=== PATIENT | female | born 1980 | race Caucasian/White ===

== ENCOUNTER → 2016-03-14 | Outpatient (CLI) | payer OTHER ==
[~2016-03-14] MED LIST: /MOM400 PO; ACET50TA PO; ANUS2.5C2 PR; DOCU10ELUD PO; IBUP100SUS PO
[2016-03-14 13:20] LABS: MEAN CORPUSCULAR HEMOGLOBIN 30.8 pg (27.0-33.0); MEAN CORPUSCULAR VOLUME 87.9 fl (80.0-96.0); RED CELL DISTRIBUTION WIDTH 12.9 % (11.5-14.5); WHITE BLOOD COUNT 8.7 K/mm3 (4.0-10.0)
== END ==
LOC: M SMT 08:53
PROVIDERS: ATTEND Advanced Practice Midwife
DX: Z34.82 Encounter for supervision of other normal pregnancy, second trimester (principal)

== ENCOUNTER 2016-04-17 15:24 | Emergency (ER) | payer OTHER ==
[2016-04-17] MEDS ORDERED: ONDANSETRON 4MG/2ML VIAL (J2405) As Ordered ONE (16:00)
[2016-04-17 16:14] LABS: MEAN CORPUSCULAR HEMOGLOBIN 30.2 pg (27.0-33.0); MEAN CORPUSCULAR HGB CONC 34.3 g/dl (32.0-36.5); MEAN CORPUSCULAR VOLUME 88.2 fl (80.0-96.0); RED CELL DISTRIBUTION WIDTH 13.3 % (11.5-14.5); WHITE BLOOD COUNT 13.2 K/mm3 (4.0-10.0)
[2016-04-17 16:23] LABS: ANION GAP 9 MEQ/L (8-16); BLOOD UREA NITROGEN 8 MG/DL (7-18); CALCIUM LEVEL 8.3 MG/DL (8.5-10.1); CARBON DIOXIDE LEVEL 25 MEQ/L (21-32); CHLORIDE LEVEL 105 MEQ/L (98-107); CREATININE FOR GFR 0.48 MG/DL (0.55-1.02); GLOMERULAR FILTRATION RATE > 60.0 (>60); GLUCOSE, FASTING 97 MG/DL (70-105); POTASSIUM SERUM 3.8 MEQ/L (3.5-5.1); SODIUM LEVEL 139 MEQ/L (136-145)
--- NOTE | 2016-04-17 19:48 | EDDOCDS ---
Nurse's Notes [facility] Name: Zahraa Babb Age: 35 yrs Sex: Female : 1980 Arrival Date: 04/17/2016 Time: 15:24 Bed 18 Private MD: Jaida Norwood PA-C. Diagnosis: Vomiting; related conditions, unspecified, third trimester Presentation: 04/17 15:29 Presenting complaint: Patient states: Patient reports she has been vomiting since 9 jmb a.m. today. Patient reports inability to keep food and fluids down. Patient report nausea and light headed. Adult Sepsis Screening: The patient does not have new or worsening altered mentation. Patient's respiratory rate is less than 22. Systolic blood pressure is greater than 100. Patient has a qSOFA score of 0- Negative Sepsis Screen. Suicide/Homicide risk assessment- the patient denies having any suicidal and/or homicidal ideations and does not present with any other emotional, behavioral or mental health complaints. Status: Patient is not a bookkeeping service sales agent or dependent. Transition of care: patient was not received from another setting of care. 15:29 Acuity: NOEL Level 3 [facility] 15:29 Method Of Arrival: Walkin/Carried/Asstd [facility] Triage Assessment: 15:31 General: Appears in no apparent distress, Behavior is appropriate for age, cooperative. [facility] Pain: Location: abdomen Pain currently is 7 out of 10 on a pain scale. HIV screening NA for this visit Offered previously. Neurological: Level of Consciousness is awake, alert, obeys commands, Oriented to person, place, time, Speech is normal, Facial symmetry appears normal, Facial symmetry: tongue is midline. Respiratory: Airway is patent Respiratory effort is even, unlabored, Respiratory pattern is regular, symmetrical. GI: Abdomen is gravid. Derm: Skin is pink, warm & dry. Musculoskeletal: Range of motion intact in all extremities. 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 Vitamin Oral tab 1 tab once daily - PMHx: none; - PSHx: Lasik Surgery; wisdom teeth; - Social history: Smoking status: Patient states was never smoker of tobacco. No barriers to communication noted, The patient speaks fluent Bangladeshi, Speaks appropriately for age. - Family history: Not pertinent. - : The pt / caregiver states he / she is not on anticoagulants. Home medication list is obtained from the patient. - Exposure Risk Screening:: None identified. Screenin:12 Screening information is obtained from the patient. Fall risk: No risks identified. jmk Assistance ADL's: requires no assistance with activities of daily living. Abuse/DV Screen: The patient / caregiver reports he/she is: not in a situation that causes fear, pain or injury. Nutritional screening: No deficits noted. Advance Directives: Currently, there is no health care proxy. There is no active DNR order. There is no living will. There is no Power of Chemical Laboratory Scientist. Advance directive information has not previously been placed in an [facility] medical record. Further advance directive information is declined. home support is adequate. Assessment: 16:12 General: Appears in no apparent distress, skin warm and dry color satisfactory. Moist jmk pink oral mucosa. abd with gravid uterus. BS + . FHT 172 and of good quality. reports adequate ctivity.. GI: Abdomen is gravid Bowel sounds present X 4 quads. Abd is soft X 4 quads. 16:43 General: Appears nausea resolved. no vomiting since arrival bolus infusing. jmk 19:47 General: Appears in no apparent distress, comfortable, Behavior is appropriate for age, nn1 cooperative. Pain: Denies pain. GI: Abdomen is gravid Bowel sounds present X 4 quads. Derm: Skin is pink, warm & dry. Vital Signs: 15:27 BP 137 / 70 RA Sitting (auto/reg); Pulse 128; Resp 18; Temp 97.6(O); Pulse Ox 100% on jrd R/A; Weight 105.23 kg (R); Height 5 ft. 4 in. (162.56 cm); Pain 6/10; 17:55 BP 104 / 56; Pulse 104; Resp 18; jmk 19:45 BP 97 / 51; Pulse 93; Resp 18; Temp 96.9(O); Pulse Ox 96% on R/A; Pain 0/10; nn1 15:27 Body Mass Index 39.82 (105.23 kg, 162.56 cm) [facility] Vitals: 15:27 Log In Time: April 17, 2016 at 15:15. [facility] ED Course: 15:26 Patient visited by Betito Ellis PCA. jrd 15:26 Jaida Norwood is Private Physician. jrd 15:26 Patient moved to Waiting jrd 15:28 Patient visited by Betito Ellis PCA. jrd 15:28 Patient moved to Pre RCE jrd 15:30 Triage Initiated jmb 15:35 Bernadette Gracia MD is Attending Physician. sd1 15:35 Patient moved to 18 ar3 15:37 Patient visited by Bernadette Gracia MD. sd1 15:59 MED Profile Sent. jmk 15:59 CBC Sent. jmk 16:12 The patient / caregiver is instructed regarding the plan of care and ED course. jmk 16:12 Inserted saline lock: 20 gauge in left antecubital area and blood collected. jmk 16:15 Patient visited by Rufus Scherer RN. jmk 16:45 Patient visited by Rajendra Cardona PCA. jlf 17:42 [facility] Payment Agreement was scanned into [employer] and attached to record. zo 18:48 Igor Mckeon CNM is Referral Physician. sd1 19:46 Discontinued IV lock bleeding controlled, pressure dressing applied, No nn1 redness/swelling at site. No procedures done that require assistance. Administered Medications: 16:12 Drug: NS 0.9% 1000 ml Route: IV; Rate: bolus; Site: left antecubital; manuelk 16:12 Drug: Ondansetron 4 mg Route: IVP; Site: left antecubital; manuelk 16:12 Drug: NS 0.9% 1000 ml Route: IV; Rate: bolus; Site: left antecubital; manuelk Intake: 17:55 IV: 1000.00ml (NS); Total: 1000.00ml. jmk 19:45 IV: 800.00ml (NS); Total: 1800.00ml. nn1 Order Results: Lab Order: CBC; SPEC'M 04/17/16 15:57 Test: WHITE BLOOD COUNT; Value: 13.2; Range: 4.0-10.0; Abnormal: Above high normal; Units: K/mm3; Status: F Test: RED BLOOD COUNT; Value: 3.88; Range: 4.00-5.40; Abnormal: Below low normal; Units: M/mm3; Status: F Test: HEMOGLOBIN; Value: 11.7; Range: 12.0-16.0; Abnormal: Below low normal; Units: g/dl; Status: F Test: HEMATOCRIT; Value: 34.2; Range: 36.0-47.0; Abnormal: Below low normal; Units: %; Status: F Test: MEAN CORPUSCULAR VOLUME; Value: 88.2; Range: 80.0-96.0; Units: fl; Status: F Test: MEAN CORPUSCULAR HEMOGLOBIN; Value: 30.2; Range: 27.0-33.0; Units: pg; Status: F Test: MEAN CORPUSCULAR HGB CONC; Value: 34.3; Range: 32.0-36.5; Units: g/dl; Status: F Test: RED CELL DISTRIBUTION WIDTH; Value: 13.3; Range: 11.5-14.5; Units: %; Status: F Test: PLATELET COUNT, AUTOMATED; Value: 188; Range: 150-450; Units: k/mm3; Status: F Lab Order: MED Profile; [facility]' 04/17/16 15:57 Test: GLUCOSE, FASTING; Value: 97; Range: 70-105; Units: MG/DL; Status: F Test: BLOOD UREA NITROGEN; Value: 8; Range: 7-18; Units: MG/DL; Status: F Test: CREATININE FOR GFR; Value: 0.48; Range: 0.55-1.02; Abnormal: Below low normal; Units: MG/DL; Status: F Test: GLOMERULAR FILTRATION RATE; Value: > 60.0; Range: >60; Status: F Test: SODIUM LEVEL; Value: 139; Range: 136-145; Units: MEQ/L; Status: F Test: POTASSIUM SERUM; Value: 3.8; Range: 3.5-5.1; Units: MEQ/L; Status: F Test: CHLORIDE LEVEL; Value: 105; Range: 98-107; Units: MEQ/L; Status: F Test: CARBON DIOXIDE LEVEL; Value: 25; Range: 21-32; Units: MEQ/L; Status: F Test: ANION GAP; Value: 9; Range: 8-16; Units: MEQ/L; Status: F Test: CALCIUM LEVEL; Value: 8.3; Range: 8.5-10.1; Abnormal: Below low normal; Units: MG/DL; Status: F Test Note: ; Units are mL/min/1.73 m2 Chronic Kidney Disease Staging per NKF: Stage I & II GFR >=60 Normal to Mildly Decreased Stage III GFR 30-59 Moderately Decreased Stage IV GFR 15-29 Severely Decreased Stage V GFR <15 Very Little GFR Left ESRD GFR <15 on MOTOR 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 sd1 19:46 Discharge Assessment: Patient awake, alert and oriented x 3. No cognitive and/or nn1 functional deficits noted. Patient verbalized understanding of disposition instructions. patient administered narcotics - no. 19:46 The following High Risk Discharge criteria are identified: None. Discharged to home nn1 ambulatory, with parent. Condition: stable Condition: improved. No special radiology studies were completed. Property :Personal belongings accompany Pt. 19:47 Patient left the ED. nn1 Signatures: Bernadette Gracia MD MD sd1 Rufus Scherer,RN RN Sunny Barroso Alicia, GREASE MONKEY GREASE MONKEY ar3 Meet Fajardo,RN RN Rajendra Phillips, GREASE MONKEY GREASE MONKEY bharatf Betito Ellis, GREASE MONKEY GREASE MONKEY Jack Estrada,RN RN nn1 Corrections: (The following items were deleted from the chart) 15:32 15:31 LMP N/A - currently geoff tellez MTDD
--- NOTE | 2016-04-17 19:48 | EDDOCDS ---
Physician Documentation [facility] Name: Zahraa Babb Age: 35 yrs Sex: Female : 1980 Arrival Date: 04/17/2016 Time: 15:24 Bed 18 Private MD: Jaida Norwood PA-C. Disposition: 04/17/16 18:48 Discharged to Home/Self Care. Impression: Vomiting, related conditions, unspecified, third trimester. - Condition is Stable. - Discharge Instructions: Nausea and Vomiting, Third Trimester of , [id number]. - Medication Reconciliation, Local Pharmacy Hours form. - Follow up: Igor Mckeon; When: 1 - 2 days. - Problem is new. - Symptoms are resolved. Historical: - Allergies: Amoxicillin; - Home Meds: 1. Vitamin Oral tab 1 tab once daily - PMHx: none; - PSHx: Lasik Surgery; wisdom teeth; - Social history: Smoking status: Patient states was never smoker of tobacco. No barriers to communication noted, The patient speaks fluent German, Speaks appropriately for age. - Family history: Not pertinent. - : The pt / caregiver states he / she is not on anticoagulants. Home medication list is obtained from the patient. - Exposure Risk Screening:: None identified. DIRECTOR TRANSPORTATION: 04/17 15:31 LMP N/A - currently , 30 weeks [facility] Vital Signs: 15:27 BP 137 / 70 RA Sitting (auto/reg); Pulse 128; Resp 18; Temp 97.6(O); Pulse Ox 100% on jrd R/A; Weight 105.23 kg / 231.99 lbs (R); Height 5 ft. 4 in. (162.56 cm); Pain 6/10; 17:55 BP 104 / 56; Pulse 104; Resp 18; jmk 19:45 BP 97 / 51; Pulse 93; Resp 18; Temp 96.9(O); Pulse Ox 96% on R/A; Pain 0/10; nn1 15:27 Body Mass Index 39.82 (105.23 kg, 162.56 cm) jrd MDM: 15:38 Heart Tones ordered. sd1 15:38 IV Saline Lock ordered. sd1 15:38 NS 0.9% 1000 ml IV at bolus once ordered. sd1 15:39 CBC Ordered. EDMS 15:39 MED Profile Ordered. EDMS 15:42 Ondansetron 4 mg IVP once ordered. sd1 16:01 NS 0.9% 1000 ml IV at bolus once ordered. sd1 16:31 CBC Reviewed. sd1 16:31 MED Profile Reviewed. sd1 16:46 Fluid Challenge ordered. sd1 17:35 Financial registration complete. zo 17:35 Misc. Nursing Order ordered. sd1 17:42 [facility] Payment Agreement was scanned into [employer] and attached to record. zo Administered Medications: 16:12 Drug: NS 0.9% 1000 ml Route: IV; Rate: bolus; Site: left antecubital; jmk 16:12 Drug: Ondansetron 4 mg Route: IVP; Site: left antecubital; jose 16:12 Drug: NS 0.9% 1000 ml Route: IV; Rate: bolus; Site: left antecubital; manuelk Signatures: Dispatcher [employer] EDNY Bernadette Gracia MD MD sd1 Rufus Scherer,RN RN Sunny Barroso Joshua,RN RN Jack Millan,RN RN nn1 The chart was reviewed and I authenticate all verbal orders and agree with the evaluation and treatment provided.Attachments: 17:42 [facility] Payment Agreement zo MTDD
--- NOTE | 2016-04-19 20:48 | EDDOCDS ---
Physician Documentation [facility] Name: Zahraa Babb Age: 35 yrs Sex: Female : 1980 Arrival Date: 04/17/2016 Time: 15:24 Bed 18 Private MD: Jaida Norwood PA-C. Disposition: 04/17/16 18:48 Discharged to Home/Self Care. Impression: Vomiting, related conditions, unspecified, third trimester. - Condition is Stable. - Discharge Instructions: Nausea and Vomiting, Third Trimester of , [id number]. - Medication Reconciliation, Local Pharmacy Hours form. - Follow up: Igor Mckeon; When: 1 - 2 days. - Problem is new. - Symptoms are resolved. Historical: - Allergies: Amoxicillin; - Home Meds: 1. Vitamin Oral tab 1 tab once daily - PMHx: none; - PSHx: Lasik Surgery; wisdom teeth; - Social history: Smoking status: Patient states was never smoker of tobacco. No barriers to communication noted, The patient speaks fluent Yi, Speaks appropriately for age. - Family history: Not pertinent. - : The pt / caregiver states he / she is not on anticoagulants. Home medication list is obtained from the patient. - Exposure Risk Screening:: None identified. 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 Vital Signs: 15:27 BP 137 / 70 RA Sitting (auto/reg); Pulse 128; Resp 18; Temp 97.6(O); Pulse Ox 100% on jrd R/A; Weight 105.23 kg / 231.99 lbs (R); Height 5 ft. 4 in. (162.56 cm); Pain 6/10; 17:55 BP 104 / 56; Pulse 104; Resp 18; jmk 19:45 BP 97 / 51; Pulse 93; Resp 18; Temp 96.9(O); Pulse Ox 96% on R/A; Pain 0/10; nn1 15:27 Body Mass Index 39.82 (105.23 kg, 162.56 cm) jrd MDM: 15:38 Heart Tones ordered. sd1 15:38 IV Saline Lock ordered. sd1 15:38 NS 0.9% 1000 ml IV at bolus once ordered. sd1 15:39 CBC Ordered. EDMS 15:39 MED Profile Ordered. EDMS 15:42 Ondansetron 4 mg IVP once ordered. sd1 16:01 NS 0.9% 1000 ml IV at bolus once ordered. sd1 16:31 CBC Reviewed. sd1 16:31 MED Profile Reviewed. sd1 16:46 Fluid Challenge ordered. sd1 17:35 Financial registration complete. zo 17:35 [facility] Nursing Order ordered. sd1 17:42 [facility] Payment Agreement was scanned into [employer] and attached to record. zo 04/18 12:06 T-Sheet-- Draft Copy was scanned into [employer] and attached to record. gb Administered Medications: 04/17 16:12 Drug: NS 0.9% 1000 ml Route: IV; Rate: bolus; Site: left antecubital; manuelk 16:12 Drug: Ondansetron 4 mg Route: IVP; Site: left antecubital; jose 16:12 Drug: NS 0.9% 1000 ml Route: IV; Rate: bolus; Site: left antecubital; manuelk Signatures: Dispatcher [employer] Bernadette Medina MD MD sd1 Rufus Scherer,RN RN Mirna Trent, [place] Reg Sunny Ríos Joshua, RN RN Jack Millan,RN RN nn1 The chart was reviewed and I authenticate all verbal orders and agree with the evaluation and treatment provided.Attachments: 17:42 [facility] Payment Agreement zo 04/18 12:06 T-Sheet-- Draft Copy gb Chart Complete MTDD
--- NOTE | 2016-04-19 20:48 | EDDOCDS ---
Nurse's Notes [facility] Name: Zahraa Babb Age: 35 yrs Sex: Female : 1980 Arrival Date: 04/17/2016 Time: 15:24 Bed 18 Private MD: Jaida Norwood PA-C. Diagnosis: Vomiting; related conditions, unspecified, third trimester Presentation: 04/17 15:29 Presenting complaint: Patient states: Patient reports she has been vomiting since 9 jmb a.m. today. Patient reports inability to keep food and fluids down. Patient report nausea and light headed. Adult Sepsis Screening: The patient does not have new or worsening altered mentation. Patient's respiratory rate is less than 22. Systolic blood pressure is greater than 100. Patient has a qSOFA score of 0- Negative Sepsis Screen. Suicide/Homicide risk assessment- the patient denies having any suicidal and/or homicidal ideations and does not present with any other emotional, behavioral or mental health complaints. Status: Patient is not a director learning services or dependent. Transition of care: patient was not received from another setting of care. 15:29 Acuity: NOEL Level [address] [facility] 15:29 Method Of Arrival: Walkin/Carried/Asstd [facility] Triage Assessment: 15:31 General: Appears in no apparent distress, Behavior is appropriate for age, cooperative. [facility] Pain: Location: abdomen Pain currently is 7 out of 10 on a pain scale. HIV screening NA for this visit Offered previously. Neurological: Level of Consciousness is awake, alert, obeys commands, Oriented to person, place, time, Speech is normal, Facial symmetry appears normal, Facial symmetry: tongue is midline. Respiratory: Airway is patent Respiratory effort is even, unlabored, Respiratory pattern is regular, symmetrical. GI: Abdomen is gravid. Derm: Skin is pink, warm & dry. Musculoskeletal: Range of motion intact in all extremities. 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 Historical: - Allergies: Amoxicillin; - Home Meds: 1. Vitamin Oral tab 1 tab once daily - PMHx: none; - PSHx: Lasik Surgery; wisdom teeth; - Social history: Smoking status: Patient states was never smoker of tobacco. No barriers to communication noted, The patient speaks fluent Finnish, Speaks appropriately for age. - Family history: Not pertinent. - : The pt / caregiver states he / she is not on anticoagulants. Home medication list is obtained from the patient. - Exposure Risk Screening:: None identified. Screenin:12 Screening information is obtained from the patient. Fall risk: No risks identified. jmk Assistance ADL's: requires no assistance with activities of daily living. Abuse/DV Screen: The patient / caregiver reports he/she is: not in a situation that causes fear, pain or injury. Nutritional screening: No deficits noted. Advance Directives: Currently, there is no health care proxy. There is no active DNR order. There is no living will. There is no Power of Title Search Manager. Advance directive information has not previously been placed in an [facility] medical record. Further advance directive information is declined. home support is adequate. Assessment: 16:12 General: Appears in no apparent distress, skin warm and dry color satisfactory. Moist jmk pink oral mucosa. abd with gravid uterus. BS + . FHT 172 and of good quality. reports adequate ctivity.. GI: Abdomen is gravid Bowel sounds present X 4 quads. Abd is soft X 4 quads. 16:43 General: Appears nausea resolved. no vomiting since arrival bolus infusing. jmk 19:47 General: Appears in no apparent distress, comfortable, Behavior is appropriate for age, nn1 cooperative. Pain: Denies pain. GI: Abdomen is gravid Bowel sounds present X 4 quads. Derm: Skin is pink, warm & dry. Vital Signs: 15:27 BP 137 / 70 RA Sitting (auto/reg); Pulse 128; Resp 18; Temp 97.6(O); Pulse Ox 100% on jrd R/A; Weight 105.23 kg (R); Height 5 ft. 4 in. (162.56 cm); Pain 6/10; 17:55 BP 104 / 56; Pulse 104; Resp 18; jmk 19:45 BP 97 / 51; Pulse 93; Resp 18; Temp 96.9(O); Pulse Ox 96% on R/A; Pain 0/10; nn1 15:27 Body Mass Index 39.82 (105.23 kg, 162.56 cm) [facility] Vitals: 15:27 Log In Time: April 17, 2016 at 15:15. [facility] ED Course: 15:26 Patient visited by Betito Ellis PCA. jrd 15:26 Jaida Norwood is Private Physician. jrd 15:26 Patient moved to Waiting jrd 15:28 Patient visited by Betito Ellis PCA. jrd 15:28 Patient moved to Pre RCE jrd 15:30 Triage Initiated jmb 15:35 Bernadette Gracia MD is Attending Physician. sd1 15:35 Patient moved to 18 ar3 15:37 Patient visited by Bernadette Gracia MD. sd1 15:59 MED Profile Sent. jmk 15:59 CBC Sent. jmk 16:12 The patient / caregiver is instructed regarding the plan of care and ED course. jmk 16:12 Inserted saline lock: 20 gauge in left antecubital area and blood collected. jmk 16:15 Patient visited by Rufus Scherer RN. jmk 16:45 Patient visited by Rajendra Cardona PCA. jlf 17:42 [facility] Payment Agreement was scanned into [employer] and attached to record. zo 18:48 Igor Mckeon CNM is Referral Physician. sd1 19:46 Discontinued IV lock bleeding controlled, pressure dressing applied, No nn1 redness/swelling at site. No procedures done that require assistance. 04/18 12:06 T-Sheet-- Draft Copy was scanned into [employer] and attached to record. gb Administered Medications: 04/17 16:12 Drug: NS 0.9% 1000 ml Route: IV; Rate: bolus; Site: left antecubital; manuelk 16:12 Drug: Ondansetron 4 mg Route: IVP; Site: left antecubital; jmk 16:12 Drug: NS 0.9% 1000 ml Route: IV; Rate: bolus; Site: left antecubital; manuelk Intake: 17:55 IV: 1000.00ml (NS); Total: 1000.00ml. jmk 19:45 IV: 800.00ml (NS); Total: 1800.00ml. nn1 Order Results: Lab Order: CBC; SPEC'M 04/17/16 15:57 Test: WHITE BLOOD COUNT; Value: 13.2; Range: 4.0-10.0; Abnormal: Above high normal; Units: K/mm3; Status: F Test: RED BLOOD COUNT; Value: 3.88; Range: 4.00-5.40; Abnormal: Below low normal; Units: M/mm3; Status: F Test: HEMOGLOBIN; Value: 11.7; Range: 12.0-16.0; Abnormal: Below low normal; Units: g/dl; Status: F Test: HEMATOCRIT; Value: 34.2; Range: 36.0-47.0; Abnormal: Below low normal; Units: %; Status: F Test: MEAN CORPUSCULAR VOLUME; Value: 88.2; Range: 80.0-96.0; Units: fl; Status: F Test: MEAN CORPUSCULAR HEMOGLOBIN; Value: 30.2; Range: 27.0-33.0; Units: pg; Status: F Test: MEAN CORPUSCULAR HGB CONC; Value: 34.3; Range: 32.0-36.5; Units: g/dl; Status: F Test: RED CELL DISTRIBUTION WIDTH; Value: 13.3; Range: 11.5-14.5; Units: %; Status: F Test: PLATELET COUNT, AUTOMATED; Value: 188; Range: 150-450; Units: k/mm3; Status: F Lab Order: MED Profile; [facility]' 04/17/16 15:57 Test: GLUCOSE, FASTING; Value: 97; Range: 70-105; Units: MG/DL; Status: F Test: BLOOD UREA NITROGEN; Value: 8; Range: 7-18; Units: MG/DL; Status: F Test: CREATININE FOR GFR; Value: 0.48; Range: 0.55-1.02; Abnormal: Below low normal; Units: MG/DL; Status: F Test: GLOMERULAR FILTRATION RATE; Value: > 60.0; Range: >60; Status: F Test: SODIUM LEVEL; Value: 139; Range: 136-145; Units: MEQ/L; Status: F Test: POTASSIUM SERUM; Value: 3.8; Range: 3.5-5.1; Units: MEQ/L; Status: F Test: CHLORIDE LEVEL; Value: 105; Range: 98-107; Units: MEQ/L; Status: F Test: CARBON DIOXIDE LEVEL; Value: 25; Range: 21-32; Units: MEQ/L; Status: F Test: ANION GAP; Value: 9; Range: 8-16; Units: MEQ/L; Status: F Test: CALCIUM LEVEL; Value: 8.3; Range: 8.5-10.1; Abnormal: Below low normal; Units: MG/DL; Status: F Test Note: ; Units are mL/min/1.73 m2 Chronic Kidney Disease Staging per NKF: Stage I & II GFR >=60 Normal to Mildly Decreased Stage III GFR 30-59 Moderately Decreased Stage IV GFR 15-29 Severely Decreased Stage V GFR <15 Very Little GFR Left ESRD GFR <15 on 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 sd1 19:46 Discharge Assessment: Patient awake, alert and oriented x 3. No cognitive and/or nn1 functional deficits noted. Patient verbalized understanding of disposition instructions. patient administered narcotics - no. 19:46 The following High Risk Discharge criteria are identified: None. Discharged to home nn1 ambulatory, with parent. Condition: stable Condition: improved. No special radiology studies were completed. Property :Personal belongings accompany Pt. 19:47 Patient left the ED. nn1 Signatures: Bernadette Gracia MD MD sd1 Rufus Scherer,RN RN Mirna Trent, Reg Reg gb Jameel, Zoeann zo Tawnya, Bertha, MOBILE HOME INSTALLER MOBILE HOME INSTALLER ar3 Meet Fajardo, RN RN Rajendra Phillips, MOBILE HOME INSTALLER MOBILE HOME INSTALLER Betito Arana, MOBILE HOME INSTALLER MOBILE HOME INSTALLER Jack Estrada,RN RN nn1 Corrections: (The following items were deleted from the chart) 15:32 15:31 LMP N/A - currently geoff tellez Chart Complete MTDD
--- NOTE | 2016-04-19 20:48 | EDDOCDS ---
Physician Documentation [facility] Name: Zahraa Babb Age: 35 yrs Sex: Female : 1980 Arrival Date: 04/17/2016 Time: 15:24 Bed 18 Private MD: Jaida Norwood PA-C. Disposition: 04/17/16 18:48 Discharged to Home/Self Care. Impression: Vomiting, related conditions, unspecified, third trimester. - Condition is Stable. - Discharge Instructions: Nausea and Vomiting, Third Trimester of , Wzbe-et-Wzdi. - Medication Reconciliation, Local Pharmacy Hours form. - Follow up: Igor Mckeon; When: 1 - 2 days. - Problem is new. - Symptoms are resolved. Historical: - Allergies: Amoxicillin; - Home Meds: 1. Vitamin Oral tab 1 tab once daily - PMHx: none; - PSHx: Lasik Surgery; wisdom teeth; - Social history: Smoking status: Patient states was never smoker of tobacco. No barriers to communication noted, The patient speaks fluent Azeri, Speaks appropriately for age. - Family history: Not pertinent. - : The pt / caregiver states he / she is not on anticoagulants. Home medication list is obtained from the patient. - Exposure Risk Screening:: None identified. 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 4 in. (162.56 cm); Pain 6/10; 17:55 BP 104 / 56; Pulse 104; Resp 18; jmk 19:45 BP 97 / 51; Pulse 93; Resp 18; Temp 96.9(O); Pulse Ox 96% on R/A; Pain 0/10; nn1 15:27 Body Mass Index 39.82 (105.23 kg, 162.56 cm) jrd MDM: 15:38 Heart Tones ordered. sd1 15:38 IV Saline Lock ordered. sd1 15:38 NS 0.9% 1000 ml IV at bolus once ordered. sd1 15:39 CBC Ordered. EDMS 15:39 MED Profile Ordered. EDMS 15:42 Ondansetron 4 mg IVP once ordered. sd1 16:01 NS 0.9% 1000 ml IV at bolus once ordered. sd1 16:31 CBC Reviewed. sd1 16:31 MED Profile Reviewed. sd1 16:46 Fluid Challenge ordered. sd1 17:35 Financial registration complete. zo [facility] Order ordered. sd1 17:42 [facility] Payment Agreement was scanned into Sensor[employer] and attached to record. zo 04/18 12:06 T-Sheet-- Draft Copy was scanned into Sensorly and attached to record. gb Administered Medications: 04/17 16:12 Drug: NS 0.9% 1000 ml Route: IV; Rate: bolus; Site: left antecubital; manuelk 16:12 Drug: Ondansetron 4 mg Route: IVP; Site: left antecubital; jose 16:12 Drug: NS 0.9% 1000 ml Route: IV; Rate: bolus; Site: left antecubital; manuelk Signatures: Dispatcher [employer] Bernadette Medina MD MD sd1 Rufus Scherer,RN RN Mirna Trent, [place] Reg Sunny Ríos Joshua, RN RN Jack Millan,RN RN nn1 The chart was reviewed and I authenticate all verbal orders and agree with the evaluation and treatment provided.Attachments: 17:42 [facility] Payment Agreement zo 04/18 12:06 T-Sheet-- Draft Copy gb Chart Complete MTDD
== END 2016-04-17 19:47 | disposition home or self-care (01) ==
LOC: M ED 15:24
DX: O21.9 Vomiting of pregnancy, unspecified (principal); Z79.899 Other long term (current) drug therapy; Z88.0 Allergy status to penicillin

== ENCOUNTER → 2016-06-02 | Outpatient (REF) | payer OTHER | LOC: M LAB REF 17:04 | PROVIDERS: ATTEND Advanced Practice Midwife | DX: Z34.83 Encounter for supervision of other normal pregnancy, third trimester (principal) ==

== ENCOUNTER → 2016-06-14 | Outpatient (CLI) | payer OTHER ==
--- NOTE | 2016-06-15 04:48 | REP ---
Clinical: Growth discrepancy for reevaluation. Comparison: 02/09/2016 . Findings: Examination demonstrates a single live intrauterine in cephalic presentation. motion is identified by technologist. Placenta is noted anteriorly and grade one without evidence for placenta previa or abruption. Amniotic fluid volume is normal. Gestational age by LMP 38 weeks 1 day with ALEKSANDR 06/27/2016 . Gestational age by current measurements 37 weeks 0 days with ALEKSANDR 07/05/2016 . FHR equals 150 beats per minute. BPD 9.0 cm 36 weeks 4 days HC 32.5 cm 36 weeks 5 days AC 37.4 cm 41 weeks 2 days FL 7.6 cm 38 weeks 6 days HC/AC ratio 0.87 Estimated weight 3829 grams ( 83rd percentile). Amniotic fluid index equals 19.0 cm. Limited anatomical assessment demonstrates no obvious abnormality. Impression: Single live advanced gestation in cephalic presentation demonstrating appropriate interval growth. EFW normal. NATACHA normal. Signed by Ajay Cox MD 06/15/2016 04:39 A
== END ==
LOC: M SMT 12:57
PROVIDERS: ATTEND Advanced Practice Midwife
DX: O26.843 Uterine size-date discrepancy, third trimester (principal)

== ENCOUNTER 2016-06-29 02:48 | Inpatient (IN) | payer OTHER, MEDICAID ==
[~2016-06-29] VITALS: Ht 162.6 cm; Wt 112.0 kg
[2016-06-29] VITALS (29 sets, daily range): BP systolic 98–148; BP diastolic 53–86
[2016-06-29 03:37] LABS: MEAN CORPUSCULAR HEMOGLOBIN 30.5 pg (27.0-33.0); MEAN CORPUSCULAR HGB CONC 34.1 g/dl (32.0-36.5); MEAN CORPUSCULAR VOLUME 89.5 fl (80.0-96.0); WHITE BLOOD COUNT 12.2 K/mm3 (4.0-10.0)
[2016-06-29] MEDS ORDERED: PRENTAB9 PO (03:46)
[2016-06-29] MEDS ORDERED: EPIDURAL COMMENT XX SCH (04:00)
[2016-06-29] MEDS ORDERED: LACTATED RINGER'S 1000 ML IV PRN (04:00)
[2016-06-29] MEDS ORDERED: FENTANYL/ROPIVACAINE/NACL BAG 200 ML EPIDURAL SCH (04:00)
[2016-06-29] MEDS ORDERED: REFRIGERATOR IV KEYS XX PRN (04:00)
[2016-06-29] MEDS ORDERED: ePHEDrine SULFATE 25 MG/5 ML(5MG/ML) SYRINGE IV PRN (04:00)
[2016-06-29] MEDS ORDERED: diphenhydrAMINE INJ 50MG/ML VIAL (J1200) IV PRN (04:00)
[2016-06-29] MEDS ORDERED: EPIDURAL/PCA KEYS XX PRN (04:00)
[2016-06-29] MEDS ORDERED: ONDANSETRON 4MG/2ML VIAL (J2405) IV PRN (04:00)
[2016-06-29] MEDS ORDERED: NALOXONE INJ 0.4 MG/1 ML VIAL (J2310) IV PRN (04:00)
[2016-06-29] MEDS ORDERED: FENTANYL 2MCG/ML ROPIVACAINE 0.2% IN 0.9% NACL 200ML IVBAG As Ordered ONE (04:02)
--- NOTE | 2016-06-29 05:56 | HPE ---
DATE OF ADMISSION: 06/29/2016 HISTORY: 36-year-old (G) 2, para (P)1 female at 40-2/7 weeks gestation by last menstrual period (LMP) consistent with 9-week ultrasound, estimated date of confinement (EDC) of 06/27/2016 presents with regular contractions every 2-3 minutes for the last several hours. Contractions increased in intensity. There is no leakage of fluid. COURSE: The patient initiated care at nine weeks gestation on 11/23/2015. Her first trimester blood pressure was 122/74, weight was 208. Her course was unremarkable. OBSTETRICAL HISTORY: 2012, 41-week vaginal delivery of a 9 pound, 13 ounce female infant, no complications. PAST MEDICAL HISTORY: Noncontributory. PAST SURGICAL HISTORY: 1. [place] teeth removal. 2. Lasik eye surgery. ALLERGIES: AMOXICILLIN. SOCIAL HISTORY: The patient is . She denies cigarettes, alcohol or drug use. FAMILY HISTORY: Noncontributory. PHYSICAL EXAMINATION: VITAL SIGNS: Blood pressure 130/78, pulse 80. GENERAL: She appears moderately comfortable. HEAD/NECK: Exam is normal. LUNGS: Clear. HEART: Regular rate and rhythm. ABDOMEN: Nontender, gravid, heart tones category I. STERILE VAGINAL EXAM: 5 cm, 100% effaced, -1 station, intact bulging membranes. Contractions are 2-3 minutes. EXTREMITIES: Nontender. LABORATORY DATA: Blood type A positive, Rubella immune, RPR nonreactive. Hepatitis B and C negative. Group B streptococcus (GBS) negative on 06/02/2016. Diabetes screen 130. ASSESSMENT: 36-year-old (G)2, para (P)1 female 40-2/7 weeks gestation presents in active labor. The patient is admitted on 06/29/2016.
[2016-06-29] MEDS ORDERED: OXYTOCIN DRIP 30 UNITS in APPROPRIATE DILUENT 1 EA IV SCH (07:44)
[2016-06-29] MEDS: PRENATAL VITAMIN TAB PO SCH (09:00)
[2016-06-29 11:16] LABS: CORD GAS HCO3 V 22.8 MEQ/L; CORD GAS O2 SAT V 66.8 %; CORD GAS PCO2 V 47.5 mmHg; CORD GAS PH V 7.299 UNITS; CORD GAS PO2 V 31.1 mmHg; CORD GAS SBC V 20.4 MEQ/L; CORD GAS TCO2 V 24.3 MEQ/L
[2016-06-29 11:19] LABS: CORD GAS O2 SAT A < 15.0 %
[2016-06-29 11:26] LABS: CORD GAS ABE A -9.4; CORD GAS HCO3 A 21.5 MEQ/L; CORD GAS PCO2 A 68.6 mmHg; CORD GAS PH A 7.114 UNITS; CORD GAS PO2 A 10.8 mmHg; CORD GAS TCO2 A 23.6 MEQ/L
[2016-06-29] MEDS ORDERED: MEASLES,MUMPS,RUBELLA VACCINE INJ (MMR-II) (90707) SC SCH (12:00)
[2016-06-29] MEDS ORDERED: METHYLERGONOVINE MALEATE 0.2 MG TAB PO PRN (12:00)
[2016-06-29] MEDS ORDERED: DOCUSATE SODIUM 100 MG CAP PO PRN (12:00)
[2016-06-29] MEDS ORDERED: RHOGAM 300 MCG (1500 IU) INJ (J2790) IM SCH (12:00)
[2016-06-29] MEDS ORDERED: DIBUCAINE 1% OINTMENT 30GM TOP PRN (12:00)
--- NOTE | 2016-06-29 12:16 | DN ---
DATE: 06/29/2016 Zahraa is a 36-year-old, 2, para 2-0-0-2 now, who was admitted to labor and delivery in active labor. She utilized an epidural for her labor coping. She progressed to full dilation at 1047. She pushed to a normal spontaneous vaginal delivery of a live female in occiput anterior (OA) position with restitution to left occiput transverse (LOT) position at 1101. There was a nuchal cord times one tight that was reduced at the time of delivery. There was also a shoulder dystocia moderate in nature. It was relieved with a Hanny maneuver and suprapubic pressure as well as gentle downward guidance. The corpus immediately followed. The shoulder dystocia lasted approximately 1 minute. The cord was clamped times two and cut by myself. The was taken to the warmer for immediate resuscitation and evaluation by Dr. Cervantes and nursing staff. The is moving all extremities well. Cord blood and cord gases were obtained. Arterial cord gas 7.114, base excess -9.4, venous cord gas 7.299, base excess -4.0. Spontaneous expulsion of an intact placenta with three-vessel cord by Mcdermott mechanism was at 1124. Uterine hemostasis achieved with IV Pitocin rapid infusion and uterine fundal massage. Estimated blood loss 400 mL. Perineum and vagina were inspected and noted to be intact. female has been named Leslie. Her Apgars are 2, 8 and 9. The weighed 10 pounds 4 ounces, 4644 grams. Mom does plan to breastfeed her daughter. At the close of delivery, instrument counts, needle counts and lap counts were correct and verified. [facility]
[2016-06-29] MEDS ORDERED: ACETAMINOPHEN 500 MG TAB PO PRN (18:15)
[2016-06-29] MEDS: IBUPROFEN 800 MG TAB PO PRN (22:52)
[2016-06-30 05:38] VITALS: BP 117/62
[2016-06-30] MEDS: PRENATAL VITAMIN TAB PO SCH (07:55)
[2016-06-30] MEDS: IBUPROFEN 800 MG TAB PO PRN (07:56)
[2016-06-30 18:35] VITALS: BP 122/75
[2016-07-01] MEDS: IBUPROFEN 800 MG TAB PO PRN (05:00)
[2016-07-01 05:49] VITALS: BP 107/68
[2016-07-01] MEDS: PRENATAL VITAMIN TAB PO SCH (07:42)
[2016-07-01] MEDS ORDERED: IBUP-1114 PO (10:26)
[2016-07-01] MEDS ORDERED: COLA100C3 PO (10:26)
== END 2016-07-01 11:25 | disposition home or self-care (01) | DRG 560 ==
LOC: M LDO 02:48 → M LDI 03:08 → M OBS 13:59
PROVIDERS: ADMIT Specialist; ATTEND Specialist
PROC: 10E0XZZ Delivery of Products of Conception, External Approach (ICD-10-PCS; principal; 2016-06-29)
DX: O48.0 Post-term pregnancy (principal); O66.0 Obstructed labor due to shoulder dystocia; Z37.0 Single live birth; Z3A.40 40 weeks gestation of pregnancy; Z88.0 Allergy status to penicillin; O69.2XX0 Labor and delivery complicated by other cord entanglement, with compression, not applicable or unspecified; Z79.899 Other long term (current) drug therapy

== ENCOUNTER → 2016-10-20 | Outpatient (REF) | payer OTHER, MEDICAID ==
[~2016-10-20] MED LIST changes: +COLA100C5 PO; +IBUP-1114 PO; +PRENTAB9 PO
== END ==
LOC: M LAB REF 15:35
PROVIDERS: ATTEND Advanced Practice Midwife
DX: Z12.4 Encounter for screening for malignant neoplasm of cervix (principal)

== ENCOUNTER → 2017-10-11 | Outpatient (CLI) | payer OTHER, MEDICAID | LOC: M WUC 18:58 | DX: M79.671 Pain in right foot (principal) | CPT/HCPCS: 73630 ==

== ENCOUNTER 2018-06-13 11:22 | Emergency (ER) | payer OTHER, MEDICAID ==
[~2018-06-13] VITALS: Ht 162.6 cm; Wt 106.8 kg
[~2018-06-13 11:22] MED LIST changes: -/MOM400 PO; -ACET50TA PO; -DOCU10ELUD PO; +DOCU5LIQ PO; +IBUP100S44 PO; -IBUP100SUS PO; +MAPA500T17 PO; +MILK10SU PO
[2018-06-13 12:08] LABS: BASO # 0.1 10^3/uL (0.0-0.2); BASO % 0.8 % (0.0-1.0); EOS # 0.2 10^3/uL (0.0-0.50); EOS % 1.7 % (0.0-3.0); HEMATOCRIT 36.8 % (36.0-47.0); HEMOGLOBIN 12.1 g/dl (12.0-15.5); LYMPH # 1.9 10^3/uL (1.5-4.5); MEAN CORPUSCULAR HEMOGLOBIN 28.4 pg (27.0-33.0); MEAN CORPUSCULAR HGB CONC 32.9 g/dl (32.0-36.5); MEAN CORPUSCULAR VOLUME 86.4 fl (80.0-96.0); MONO # 0.7 10^3/uL (0.0-0.8); MONO % 7.2 % (0.0-5.0); NEUTROPHILS # 6.2 10^3/uL (1.8-7.7); NEUTROPHILS % 68.9 % (36.0-66.0); PLATELET COUNT, AUTOMATED 248 10^3/uL (150-450); RED BLOOD COUNT 4.26 10^6/uL (4.00-5.40)
--- NOTE | 2018-06-13 12:59 | REP ---
First trimester stat pelvic ultrasound for vaginal bleeding: The studies performed transabdominal, endovaginal and Doppler ultrasound assessment: The uterus is anteverted and enlarged measuring 10 x 1 by 5.1 x 5.9 cm. There is no identifiable intrauterine gestation. The endometrium measures 11.1 mm and is not thickened. Right ovary: The right ovary measures 2.01 point to by 1.9 cm. There is no dominant right ovarian mass or cyst. With Doppler assessment there is vascular flow in the right ovary. Left ovary: The left ovary measures 3.3 x 1.7 x 1.9 cm. There is a 1.5 x 1.0 0.2 cm hemorrhagic cyst. With Doppler assessment there is vascular flow in the left ovary, the resistive index measures 0.54. Impression: No intrauterine gestation is identified. This is nonspecific and could represent an early gestation not yet visible, spontaneous or ectopic gestation. Follow-up is recommended. Electronically Signed by Jared Suarez MD 06/13/2018 12:50 P
[2018-06-13 13:09] VITALS: BP 127/75
== END 2018-06-13 13:12 | disposition home or self-care (01) ==
LOC: M ED 11:22
DX: O20.0 Threatened abortion (principal); Z88.0 Allergy status to penicillin; Z3A.01 Less than 8 weeks gestation of pregnancy

== ENCOUNTER → 2018-06-17 | Outpatient (CLI) | payer OTHER ==
[~2018-06-17] MED LIST changes: +OXYC1TAB23 PO
== END ==
LOC: M LAB 11:52
PROVIDERS: ATTEND Advanced Practice Midwife
DX: O20.0 Threatened abortion (principal); Z3A.00 Weeks of gestation of pregnancy not specified

== ENCOUNTER 2018-06-18 10:33 | Day surgery (SDC) | payer OTHER ==
[~2018-06-18] VITALS: Ht 162.6 cm; Wt 104.5 kg
[~2018-06-18 10:33] MED LIST changes: -OXYC1TAB23 PO
[2018-06-18 11:20] LABS: HEMATOCRIT 39.2 % (36.0-47.0); HEMOGLOBIN 12.9 g/dl (12.0-15.5); MEAN CORPUSCULAR HGB CONC 32.9 g/dl (32.0-36.5); MEAN CORPUSCULAR VOLUME 88.1 fl (80.0-96.0); PLATELET COUNT, AUTOMATED 263 10^3/uL (150-450); RED BLOOD COUNT 4.45 10^6/uL (4.00-5.40); WHITE BLOOD COUNT 8.2 10^3/uL (4.0-10.0)
[2018-06-18] MEDS ORDERED: NS 1,000 ML IV ONE (12:15)
--- NOTE | 2018-06-18 13:30 | REP ---
First trimester obstetric sonography: History: Abnormal rise in beta hCG level. Question ectopic. Sonographic findings: Transabdominal and transvaginal scanning are performed. The uterus is empty measuring 10.2 x 5.1 x 5.5 cm. Endometrial stripe is 0.6 cm thick and centrally placed. There is a complex mass lesion adjacent to the left ovary measuring 2.6 x 2.1 x 1.7 cm. There is a hypoechoic cyst in the left ovary 1.2 cm in diameter. The left ovary measures 2.9 x 2.1 x 1.8 cm. Right ovary is normal measuring 2.4 x 1.3 x 2.1 cm. Impression: There is no evidence of intrauterine gestation. There is a complex 2.6 cm lesion in the left adnexa adjacent to the ovary which may well be an ectopic gestation. No free fluid is seen. Normal right ovary. Electronically Signed by Jethro Todd MD 06/18/2018 08:38 P
[2018-06-18] MEDS ORDERED: BUPIVACAINE HCL 0.25% 30 ML VIAL As Ordered ONE (15:18)
[2018-06-18] MEDS ORDERED: fentaNYL 100 MCG/2 ML INJECTION (J3010) As Ordered ONE ×2 (15:42→16:17)
[2018-06-18] MEDS ORDERED: PROPOFOL 200 MG/20 ML VIAL As Ordered ONE ×2 (15:42→16:32)
[2018-06-18] MEDS ORDERED: LIDOCAINE 2% INJ 100 MG/5 ML SDV (FOR ANES.) As Ordered ONE (15:42)
[2018-06-18] MEDS ORDERED: ROCURONIUM BROMIDE 50 MG/5 ML VIAL As Ordered ONE (15:42)
[2018-06-18] MEDS ORDERED: MIDAZOLAM INJ 2 MG/2 ML VIAL (J2250) As Ordered ONE (15:43)
[2018-06-18] MEDS ORDERED: SUCCINYLCHOLINE 100 MG/5 ML SYRINGE (J0330) As Ordered ONE (15:45)
[2018-06-18] MEDS ORDERED: ESMOLOL INJ 100MG/10ML VIAL As Ordered ONE (16:25)
[2018-06-18] MEDS ORDERED: dexameTHASONE 4 MG/ML 1ML VIAL (J1100) As Ordered ONE (16:30)
[2018-06-18] MEDS ORDERED: ONDANSETRON 4MG/2ML VIAL (J2405) As Ordered ONE (16:30)
[2018-06-18] MEDS ORDERED: NEOSTIGMINE 10 MG/10 ML VIAL (J2710) As Ordered ONE (17:20)
[2018-06-18] MEDS ORDERED: GLYCOPYRROLATE INJ 0.2 MG/ML 2 ML VIAL As Ordered ONE (17:20)
[2018-06-18] MEDS ORDERED: KETOROLAC 60 MG/2 ML VIAL (J1885) As Ordered ONE (17:21)
[2018-06-18] MEDS ORDERED: OXYC1TAB23 PO (17:44)
[2018-06-18] MEDS ORDERED: fentaNYL 100 MCG/2 ML INJECTION (J3010) IV PRN (17:45)
[2018-06-18] MEDS ORDERED: PERCOCET 5MG/325MG TAB PO PRN ×2 (17:45→18:00)
[2018-06-18] MEDS ORDERED: LR 1,000 ML IV SCH ×2 (17:45→18:00)
[2018-06-18] MEDS ORDERED: ONDANSETRON 4MG/2ML VIAL (J2405) IV PRN (17:45)
[2018-06-18] MEDS: HYDROMORPHONE HCL 0.5 MG/ 0.5 ML SYRINGE (J1170 PER 1) IV PRN ×2 (17:50→18:20)
[2018-06-18] MEDS ORDERED: METOCLOPRAMIDE INJ 10MG/2ML VIAL (J2765) As Ordered ONE (19:00)
[2018-06-18] MEDS ORDERED: METOCLOPRAMIDE INJ 10MG/2ML VIAL (J2765) IV ONE (19:30)
[2018-06-18 20:38] VITALS: BP 99/57
--- NOTE | 2018-06-19 10:55 | RO ---
DATE OF PROCEDURE: 06/18/2018 PREOPERATIVE DIAGNOSIS: Left ectopic . POSTOPERATIVE DIAGNOSIS: Left ectopic . PROCEDURE: Laparoscopic left salpingectomy. SURGEON: Dr. Vahid Garcia BUS PERSON DISHWASHER: ANESTHESIA: General endotracheal. ESTIMATED BLOOD LOSS: 100 mL. URINE OUTPUT: 100 mL. FINDINGS: 4-5 cm left ampullary fallopian tube ectopic . The ectopic was bulging into the broad ligament. There was approximately 100 mL of blood in the posterior cul-de-sac. She had normal appearing right fallopian tube and ovary and normal appearing left ovary. DESCRIPTION OF PROCEDURE: The patient was taken to the operating room where general endotracheal anesthesia was induced. She was prepped and draped in sterile fashion in the dorsal lithotomy position. A Walter catheter was placed. The [place] uterine tenaculum was placed. A periumbilical incision made with a scalpel. A Veress needle was placed through this incision while tenting up on the skin of the abdomen. Intra-abdominal location of the Veress needle was assessed with the use of a saline filled syringe. Pneumoperitoneum was created. The Veress needle was removed. An 8 mm trocar was inserted through this incision. Two 5 mm suprapubic ports were placed under direct visualization without difficulty. The mid portion of the left fallopian tube was grasped with an atraumatic grasper. A linear incision was created on the antimesenteric side of the fallopian tube. The ectopic was removed successfully from the fallopian tube. Persistent bleeding was noted from the salpingotomy site. This was attempted to coagulate with the harmonic scalpel. The ectopic was very close to the IP ligament and fallopian tube vessels and that is why it was likely bleeding. The decision was made to remove the fallopian tube after unsuccessful attempts were made to coagulate bleeding. The tube was grasped with a grasper at its fimbriated end. The harmonic scalpel was used to coagulate and incise broad ligament attachments to the fallopian tube. The tube was then excised near its origin. The fallopian tube and ectopic gestation were removed through an Endo catch bag at the umbilical port. Good hemostasis was noted. Suction manager legal was used to evacuate blood from the pelvis. The pneumoperitoneum was released. All instruments were removed. The skin was closed with #4-0 Monocryl subcuticular sutures. Sponge, instrument and needle counts were correct.
== END 2018-06-18 20:58 | disposition home or self-care (01) ==
LOC: M ED 10:33 → M SDC 13:00
PROVIDERS: ATTEND Specialist
DX: O00.102 Left tubal pregnancy without intrauterine pregnancy (principal); Z88.0 Allergy status to penicillin
CPT/HCPCS: 36415; 59151; 76801; 76817; 84702; 85027; 86850; 86900; 86901; 88305; 99284; J0330; J1100; J1170; J1885; J2250; J2405; J2710; J2765; J3010

== ENCOUNTER → 2018-10-08 | Outpatient (CLI) | payer OTHER ==
[~2018-10-08] MED LIST changes: +OXYC1TAB23 PO
[2018-10-08 18:32] LABS: BASO # 0.1 10^3/uL (0.0-0.2); BASO % 0.5 % (0.0-1.0); EOS # 0.2 10^3/uL (0.0-0.50); EOS % 1.4 % (0.0-3.0); HEMATOCRIT 36.6 % (36.0-47.0); LYMPH # 2.3 10^3/uL (1.5-4.5); LYMPH % 19.7 % (24.0-44.0); MEAN CORPUSCULAR HEMOGLOBIN 28.7 pg (27.0-33.0); MEAN CORPUSCULAR HGB CONC 32.8 g/dl (32.0-36.5); MEAN CORPUSCULAR VOLUME 87.6 fl (80.0-96.0); MONO # 0.8 10^3/uL (0.0-0.8); MONO % 7.1 % (0.0-5.0); NEUTROPHILS # 8.4 10^3/uL (1.8-7.7); NEUTROPHILS % 70.8 % (36.0-66.0); PLATELET COUNT, AUTOMATED 239 10^3/uL (150-450); RED BLOOD COUNT 4.18 10^6/uL (4.00-5.40); WHITE BLOOD COUNT 11.9 10^3/uL (4.0-10.0)
[2018-10-09 10:06] LABS: HEPATITIS C VIRUS ABY INDEX 0.1 INDEX (<0.8); HIV 1&2 SCREEN CENTAUR NEGATIVE (NEGATIVE); RUBELLA IgG QUALITATIVE IMMUNE (IMMUNE)
== END ==
LOC: M SMT 15:01
PROVIDERS: ATTEND Advanced Practice Midwife
DX: Z36.89 Encounter for other specified antenatal screening (principal)

== ENCOUNTER → 2018-11-05 | Outpatient (REF) | payer OTHER ==
[2018-11-05 22:50] LABS: CHLAMYDIA DNA AMPLIFICATION NEGATIVE (NEGATIVE); GC DNA AMPLIFICATION NEGATIVE (NEGATIVE)
== END ==
LOC: M LAB REF 17:04
PROVIDERS: ATTEND Advanced Practice Midwife
DX: Z34.81 Encounter for supervision of other normal pregnancy, first trimester (principal); Z3A.00 Weeks of gestation of pregnancy not specified

== ENCOUNTER → 2018-12-23 | Outpatient (CLI) | payer OTHER ==
--- NOTE | 2018-12-23 08:50 | REP ---
Clinical: Anatomical evaluation. Comparison: None . Findings: Examination demonstrates a single live intrauterine in cephalic presentation. motion is identified by technologist. Placenta is noted the anterior and grade zero without evidence for placenta previa or abruption. Amniotic fluid volume is normal. Cervix measures 5.9 cm in length and appears closed. No evidence for nuchal cord. Gestational age by LMP 18 weeks 4 days with ALEKSANDR 05/22/2019 . Gestational age by current measurements 18 weeks 5 days with ALEKSANDR 05/21/2019 . FHR equals 163 beats per minute. BPD 4.4 cm 19 weeks 2 days HC 16.6 cm 19 weeks 2 days AC 13.5 cm 18 weeks 6 days FL 2.7 cm 18 weeks 2 days HL 2.5 cm 18 weeks 0 days HC/AC ratio 1.23 Estimated weight 254 grams ( 51st percentile). Anatomical assessment demonstrates normal structures including cranium, choroid plexus, cavum, cerebellum/posterior fossa, lungs, diaphragm, stomach, cord insertion/three-vessel cord, kidneys/bladder, spine, and extremities. Impression: 1. Single live intrauterine in cephalic presentation demonstrating appropriate interval growth. 2. Limited evaluation of the facial features and heart/ventricular outflow tracts. Electronically Signed by Ajay Cox MD 12/23/2018 08:41 A
== END ==
LOC: M RAD 07:47
PROVIDERS: ATTEND Advanced Practice Midwife
DX: O09.512 Supervision of elderly primigravida, second trimester (principal); Z3A.18 18 weeks gestation of pregnancy

== ENCOUNTER → 2019-01-08 | Outpatient (CLI) | payer OTHER ==
--- NOTE | 2019-01-09 04:54 | REP ---
Clinical: Anatomical evaluation. Comparison: 12/23/2018 . Findings: Examination demonstrates a single live intrauterine in cephalic presentation. motion is identified by technologist. Placenta is noted anterior and grade I without evidence for placenta previa or abruption. Amniotic fluid volume is normal. Cervix measures 4.4 cm in length and appears closed. No evidence for nuchal cord. Gestational age by LMP 20 weeks 6 days with ALEKSANDR 05/22/2019 . Gestational age by current measurements 22 weeks 1 day with ALEKSANDR 05/13/2019 . FHR equals 160 beats per minute. Estimated weight 479 grams ( 91st percentile). Anatomical assessment demonstrates normal structures including cranium, choroid plexus, cavum, cerebellum/posterior fossa, facial features, lungs, four-chamber heart/ventricular outflow tracts, diaphragm, stomach, cord insertion/three-vessel cord, kidneys/bladder, and extremities. Impression: Single live intrauterine in cephalic presentation. In conjunction with prior examination anatomical assessment is complete and normal. Electronically Signed by Ajay Cox MD 01/09/2019 04:46 A
== END ==
LOC: M RAD 10:32
PROVIDERS: ATTEND Advanced Practice Midwife
DX: Z34.82 Encounter for supervision of other normal pregnancy, second trimester (principal); Z3A.22 22 weeks gestation of pregnancy

== ENCOUNTER → 2019-02-13 | Outpatient (CLI) | payer OTHER ==
[2019-02-13 13:15] LABS: HEMATOCRIT 35.3 % (36.0-47.0); HEMOGLOBIN 11.2 g/dl (12.0-15.5); MEAN CORPUSCULAR HEMOGLOBIN 28.8 pg (27.0-33.0); MEAN CORPUSCULAR HGB CONC 31.7 g/dl (32.0-36.5); MEAN CORPUSCULAR VOLUME 90.7 fl (80.0-96.0); PLATELET COUNT, AUTOMATED 202 10^3/uL (150-450); RED BLOOD COUNT 3.89 10^6/uL (4.00-5.40)
== END ==
LOC: M PLALAB 11:04
PROVIDERS: ATTEND Advanced Practice Midwife
DX: Z34.82 Encounter for supervision of other normal pregnancy, second trimester (principal); Z3A.24 24 weeks gestation of pregnancy

== ENCOUNTER → 2019-04-23 | Outpatient (CLI) | payer OTHER ==
--- NOTE | 2019-04-23 17:56 | REP ---
Obstetric ultrasonography, third trimester for growth: There is a single intrauterine gestation in a vertex presentation. The heart rate is 132 beats per minute. The placenta is anterior. There is no previa or abruptio. The placenta is grade II. The amniotic fluid volume subjectively is normal. The amniotic fluid index 16.7 (7.7 - 24.9). The cervix measures 3.1 cm. Gestational age by today's ultrasound is 37 weeks 1 day. Gestational age by the first ultrasound is 35 weeks 6 days. Gestational age by LMP is 35-week 6 days. The selected gestational age is 35-week 6 days/ALEKSANDR 05/22/2019. weight is 3428 grams/7 pounds, 8 ounces. This is the 93rd percentile for 35 weeks 6 days. Electronically Signed by Jared Suarez MD 04/23/2019 05:48 P
== END ==
LOC: M WHC 14:46
PROVIDERS: ATTEND Advanced Practice Midwife
DX: O26.849 Uterine size-date discrepancy, unspecified trimester (principal); Z3A.37 37 weeks gestation of pregnancy

== ENCOUNTER → 2019-04-24 | Outpatient (REF) | payer OTHER | LOC: M SFHCWAGY 15:28 | PROVIDERS: ATTEND Advanced Practice Midwife | DX: Z36.85 Encounter for antenatal screening for Streptococcus B (principal) ==

== ENCOUNTER → 2019-05-01 | Outpatient (REF) | payer OTHER | LOC: M PLALAB 13:20 | PROVIDERS: ATTEND Advanced Practice Midwife | DX: Z34.83 Encounter for supervision of other normal pregnancy, third trimester (principal) ==

== ENCOUNTER → 2019-05-09 | Outpatient (CLI) | payer OTHER ==
--- NOTE | 2019-05-09 16:21 | REP ---
HISTORY: Size date discrepancy. Multiple ultrasonographic images of the gravid uterus show a single living intrauterine gestation in the cephalic presentation. Doppler interrogation of the heart shows a heart rate of 147 beats per minute. The placenta is anterior and not low lying. The amniotic fluid index is 24.3, upper limit of normal being 23.8 for this gestational age. BPD 9.7 cm = 39 weeks 6 days HC 34.6 cm = 40 weeks 1 day AC 35.8 cm = 39 weeks 5 days FL 7.4 cm = 37 weeks 5 days The estimated weight is 3771 grams, which is at the 80th percentile for a 30 week 1 day gestational age. IMPRESSION: Single living intrauterine gestation as described above with an estimated gestational age of 38 weeks 4 days via composite criteria with an estimated date of delivery of 05/19/19, also by today's examination. There is evidence of mild polyhydramnios as described above.
== END ==
LOC: M WHC 14:05
PROVIDERS: ATTEND Advanced Practice Midwife
DX: O40.3XX1 Polyhydramnios, third trimester, fetus 1 (principal); Z3A.30 30 weeks gestation of pregnancy

== ENCOUNTER 2019-05-15 06:56 | Inpatient (IN) | payer OTHER ==
[~2019-05-15] VITALS: Ht 162.6 cm; Wt 121.0 kg
[2019-05-15] VITALS (16 sets, daily range): BP systolic 114–137; BP diastolic 63–86
[2019-05-15] MEDS ORDERED: STUACAP PO (07:24)
[2019-05-15 09:28] LABS: HEMATOCRIT 32.6 % (36.0-47.0); HEMOGLOBIN 10.8 g/dl (12.0-15.5); MEAN CORPUSCULAR HGB CONC 33.1 g/dl (32.0-36.5); MEAN CORPUSCULAR VOLUME 87.6 fl (80.0-96.0); PLATELET COUNT, AUTOMATED 182 10^3/uL (150-450); RED BLOOD COUNT 3.72 10^6/uL (4.00-5.40); WHITE BLOOD COUNT 9.5 10^3/uL (4.0-10.0)
[2019-05-15] MEDS ORDERED: miSOPROStol 50 MCG 1/2 TAB (S0191) SL SCH (10:00)
--- NOTE | 2019-05-15 11:10 | HPEPDOC ---
Obstetrical History & Physical General Date of Admission May 15, 2019 at 06:56 History of Present Illness Zahraa is a 39 year old female at 39 weeks by LMP. Admit for IOL and expect delivery by . Pain management per patient preference, which was discussed with her. I discussed risks of with patient of failure with section, distress, bleeding, infection, , vaginal or perineal or neighboring organ tear. Currently, fetus is reassuring. GBS is negative, no need for antibiotics. Chief Complaint: Induction of labor Information Provided By: Patient Care Care: Good Care Past Medical History Past Obstetrical History : Past Obstetrical History: Multigravida (01/28/2013 GIRL 30HRS. , EPIDURAL, 9.13# NO COMPLICATIONS ) Type of Delivery: Spontaneous Vaginal Del. Sex of : Female Complications: Yes (shoulder dystocia) Past Medical History Medical History morbid obesity Surgical History: Other (ectopic ) Family History Significant Family History: Other (breast cancer on mothers side) Social History Marital Status: Single Family situation: Spouse/partner home * Smoker: non-smoker Alcohol: Denies Drugs: denies Allergies Coded Allergies: amoxicillin (Verified Allergy, Intermediate, rash, 06/13/18) Medications Miscellaneous Medications Pnv No.63/Iron,Carb/Folic/Dha (Willis One Capsule) 1 Each Capsule, 1 CAP PO Physical Examination Physical Examination GENERAL: Alert and oriented times three. ABDOMEN: Gravid and non-tender to touch. FETUS: Is vertex (VTX) by sterile vaginal examination (SVE), 1cm, 50% effaced, - 3 station. HEART RATE: Regular rate and rhythm. LUNGS: Clear to auscultation (CTA). EXTREMITIES: Pitting edema bilaterally. No clonus. DTR's +2/4. Vital Signs/I&O Vital Signs Date Time Temp Pulse Resp B/P (MAP) Pulse Ox O2 Delivery O2 Flow Rate FiO2 05/15/19 07:16 97.6 109 16 136/71 (92) Room Air Laboratory Data 24H LABS Laboratory Tests 2 05/15/19 07:06: Serology Scanned Report Hepatitis B Testing 05/15/19 08:00: Nucleated Red Blood Cells % (auto) 0.0 CBC/BMP Laboratory Tests 05/15/19 08:00 Urine Culture: No Growth Pertinent Laboratoy Data Blood Type: A+ RBC Antibody Screen: Negative HIV: Negative Hepatitis B: Negative Hepatitis C: Negative Rapid Plasma Reagin: Nonreactive Rubella: Immune Varicella: Unknown Chlamydia/Gonorrhea: Negative Group B Streptococcus: Negative Quad Screen Test: Declined Cystic Fibrosis: Declined Glucose Tolerance Test: 100 Vaginal Examination Dilation: 1cm Effacement: 50% Station: -3 Assessment/Plan Assessment ASSESSMENT: Intrauterine at 39 weeks heart rate category one. Induction of labor. Plan Admit and orient. Resident Care Provider and consent. Diet: regular diet Group B Streptococcus (GBS) negative. Labs and intravenous (IV) per unit protocol. Counseled on Pitocin and induction of labor (IOL). Anticipate normal spontaneous delivery (). C-S as appropriate. GME ATTESTATION GME ATTESTATION My faculty preceptor for this patient encounter was physically present during the encounter and was fully available. All aspects of the patient interview, examination, medical decision making process, and medical care plan development were reviewed and approved by the faculty preceptor. The faculty preceptor is aware and concurs with the plan as stated in the body of this note and will attest to such by his/her cosignature. CHIDI JIMENEZ DO May 15, 2019 11:10
[2019-05-15] MEDS ORDERED: LR 1,000 ML IV SCH (13:50)
[2019-05-15] MEDS ORDERED: OXYTOCIN DRIP 30 UNITS in IV 1 EA IV SCH (14:00)
[2019-05-15] MEDS ORDERED: FENTANYL 2MCG/ML ROPIVACAINE 0.2% IN 0.9% NACL 100ML IVBAG As Ordered ONE ×2 (17:43→17:45)
[2019-05-15] MEDS ORDERED: EPIDURAL/PCA KEYS XX PRN (18:30)
[2019-05-15] MEDS ORDERED: LACTATED RINGER'S 1000 ML IV PRN (18:30)
[2019-05-15] MEDS ORDERED: ePHEDrine SULFATE 25 MG/5 ML(5MG/ML) SYRINGE IV PRN (18:30)
[2019-05-15] MEDS ORDERED: NALOXONE INJ 0.4 MG/1 ML VIAL (J2310) IV PRN (18:30)
[2019-05-15] MEDS ORDERED: ONDANSETRON 4MG/2ML VIAL (J2405) IV PRN ×2 (18:30→23:45)
[2019-05-15] MEDS ORDERED: REFRIGERATOR IV KEYS XX PRN (18:30)
[2019-05-15] MEDS ORDERED: FENTANYL/ROPIVACAINE/NACL BAG 100 ML EPIDURAL SCH (18:30)
[2019-05-15] MEDS ORDERED: diphenhydrAMINE INJ 50MG/ML VIAL (J1200) IV PRN (18:30)
[2019-05-15] MEDS ORDERED: EPIDURAL COMMENT XX SCH (18:30)
[2019-05-15] MEDS ORDERED: DIBUCAINE 1% OINTMENT 30GM TOP PRN (23:45)
[2019-05-15] MEDS ORDERED: IBUPROFEN 800 MG TAB PO PRN (23:45)
[2019-05-15] MEDS ORDERED: DOCUSATE SODIUM 100 MG CAP PO PRN (23:45)
[2019-05-15] MEDS ORDERED: METHYLERGONOVINE MALEATE 0.2 MG TAB PO PRN (23:45)
[2019-05-15] MEDS ORDERED: ACETAMINOPHEN TAB 650MG DOSE (2X325MG) PO PRN (23:45)
[2019-05-15] MEDS ORDERED: RHOGAM 300 MCG (1500 IU) INJ (J2790) IM SCH (23:45)
[2019-05-15] MEDS ORDERED: IBUPROFEN 600 MG TAB PO PRN (23:45)
[2019-05-15] MEDS ORDERED: MEASLES,MUMPS,RUBELLA VACCINE INJ (MMR-II) (90707) SC SCH (23:45)
[2019-05-15] MEDS ORDERED: OXYTOCIN DRIP 30 UNITS in IV 1 EA IV ONE (23:45)
[2019-05-16] MEDS: ACETAMINOPHEN 500 MG TAB PO PRN ×3 (00:24→22:41)
[2019-05-16 01:32] VITALS: BP 110/60
[2019-05-16 05:39] VITALS: BP 115/70
[2019-05-16] MEDS: PRENATAL VITAMINS CHEWABLE TABLET PO SCH (09:17)
--- NOTE | 2019-05-16 10:44 | DN ---
DATE OF DELIVERY: 05/15/2019 PREDELIVERY DIAGNOSIS: 39 weeks, labor induction. POSTDELIVERY DIAGNOSIS: Delivered. PROCEDURE: Spontaneous vaginal delivery. TELECOM SPECIALIST: Dr. Vahid Garcia CLOTHESPIN DRIER OPERATOR: Hammad Waite DO ANESTHESIA: Epidural. ESTIMATED BLOOD LOSS: 300 mL. FINDINGS: 9 pound 13 ounce, 4440 gram, male infant, Apgars 8 and 9. DELIVERY SUMMARY: After a short second stage, the patient had spontaneous delivery of a 9 pound 13 ounce male , Apgars 8 and 9, under epidural anesthesia. There was no nuchal cord. The shoulders delivered with ease. The was handed to the mother. The cord was doubly clamped and cut. The placenta delivered spontaneously and appeared to be intact. The patient received IV Pitocin immediately after delivery of the placenta. There were no vaginal lacerations present. Sponge counts were correct.
[2019-05-16 17:48] VITALS: BP 123/80
[2019-05-17 06:14] VITALS: BP 119/62
[2019-05-17] MEDS: PRENATAL VITAMINS CHEWABLE TABLET PO SCH (07:51)
[2019-05-17] MEDS: ACETAMINOPHEN 500 MG TAB PO PRN (07:52)
[2019-05-17] MEDS ORDERED: IBUP80TA PO (08:13)
[2019-05-17] MEDS ORDERED: ACET-683 PO (08:13)
== END 2019-05-17 12:08 | disposition home or self-care (01) | DRG 560 ==
LOC: M LDI 06:56 → M OBS 05-16 01:00
PROVIDERS: ADMIT Specialist; ATTEND Specialist
PROC: 10E0XZZ Delivery of Products of Conception, External Approach (ICD-10-PCS; principal; 2019-05-15)
PROC: 3E0P7GC Introduction of Other Therapeutic Substance into Female Reproductive, Via Natural or Artificial Opening (ICD-10-PCS; 2019-05-15)
DX: O66.0 Obstructed labor due to shoulder dystocia (principal); Z3A.39 39 weeks gestation of pregnancy; Z37.0 Single live birth

== ENCOUNTER → 2019-09-14 | Outpatient (CLI) | payer OTHER ==
[~2019-09-14] MED LIST changes: +ACET-683 PO; +IBUP80TA PO; +STUACAP PO
== END ==
LOC: M LABSMTC 11:19
PROVIDERS: ATTEND Anesthesiology
DX: Z01.818 Encounter for other preprocedural examination (principal); Z11.59 Encounter for screening for other viral diseases; Z20.828 Contact with and (suspected) exposure to other viral communicable diseases
CPT/HCPCS: C9803; U0003

== ENCOUNTER → 2022-01-30 | Outpatient (REF) | payer OTHER | LOC: M PLALAB 14:58 | PROVIDERS: ATTEND Nurse Practitioner Family | DX: Z12.4 Encounter for screening for malignant neoplasm of cervix (principal); R87.610 Atypical squamous cells of undetermined significance on cytologic smear of cervix (ASC-US) ==

== ENCOUNTER → 2022-01-30 | Outpatient (CLI) | payer OTHER | LOC: M WHC 08:10 | PROVIDERS: ATTEND Nurse Practitioner Family | DX: Z12.31 Encounter for screening mammogram for malignant neoplasm of breast (principal) ==

== ENCOUNTER → 2023-02-01 | Outpatient (CLI) | payer OTHER | LOC: M WHC 15:19 | PROVIDERS: ATTEND Nurse Practitioner Family | DX: Z12.31 Encounter for screening mammogram for malignant neoplasm of breast (principal) ==

== ENCOUNTER → 2023-05-25 | Outpatient (CLI) | payer OTHER | LOC: M SOG 08:56 | PROVIDERS: ATTEND Physician Assistant | DX: M25.561 Pain in right knee (principal); Z53.9 Procedure and treatment not carried out, unspecified reason ==

== ENCOUNTER → 2023-06-18 | Outpatient (CLI) | payer OTHER | LOC: M SOG 08:05 | PROVIDERS: ATTEND Physician Assistant | DX: M25.561 Pain in right knee (principal) ==

== ENCOUNTER → 2024-08-25 | Outpatient (REF) | payer OTHER ==
[2024-08-27 13:48] LABS: HPV APTIMA Not Detected (Not Detected)
== END ==
LOC: M SFHCWAGY 12:57
PROVIDERS: ATTEND Nurse Practitioner Family
DX: Z12.4 Encounter for screening for malignant neoplasm of cervix (principal); R87.610 Atypical squamous cells of undetermined significance on cytologic smear of cervix (ASC-US)